=== PATIENT | male | born 1970 | race Caucasian/White ===

== ENCOUNTER 2021-05-04 14:24 | Emergency (ER) | payer OTHER ==
[2021-05-04] MEDS ORDERED: Sodium Chloride 0.9% 1,000 ML IV ONE (14:40)
[2021-05-04 15:04] LABS: CHLORIDE,CL 94 mEq/L (98-106); SODIUM,NA 133 mEq/L (136-145)
--- NOTE | 2021-05-04 15:16 | EDM.PDOC ---
ED HPI GENERAL MEDICAL PROBLEM - General Chief Complaint: General Stated Complaint: fall Time Seen by Provider: 05/04/21 14:55 Source of Information: Reports: Patient History Limitations: Reports: No Limitations - History of Present Illness INITIAL COMMENTS - FREE TEXT/NARRATIVE: Joel is a 51 yo male who presents to the ED via EMS. Joel was at a volleyball game in [place] this afternoon when he had stood up from sitting on the bleachers. He states he got extremely lightheaded and passed out. Unsure if he hit his head. States this has happened to him in the past with last episode being in July. States he was hospitalized in July with a GI bleed and ended up getting 4 units of blood. States he does drink daily and admits to drinking last night until 2 in the morning. States typical week he will drink a case of beer. Denies any hard alcohol use. Prior to syncopal event today states he has been feeling okay. He states his primary is Dr. Triana at [facility] in [place]. States he was told he does have liver failure but hasn't been doctoring for it. - Related Data Allergies Allergy/AdvReac Type Severity Reaction Status Date / Time prednisone Allergy Cannot Verified 05/04/21 14:36 Remember Home Meds: Home Meds Omeprazole Magnesium [Prilosec Otc] 20 mg PO BID 05/04/21 [History] Past Medical History HEENT History: Reports: Allergic Rhinitis Cardiovascular History: Reports: Hypertension Gastrointestinal History: Reports: GERD, GI Bleed Psychiatric History: Reports: Anxiety, Depression - Infectious Disease History Infectious Disease History: Reports: Chicken Pox - Past Surgical History HEENT Surgical History: Reports: Myringotomy w Tube(s), Naso-Sinus Surgery, Tonsillectomy, Other (See Below) Other HEENT Surgeries/Procedures: wisdom teeth extraction GI Surgical History: Reports: Cholecystectomy Social & Family History - Tobacco Use Tobacco Use Status *Q: Current Every Day Tobacco User Years of Tobacco use: 35 Packs/Tins Daily: 1 - Alcohol Use Days Per Week of Alcohol Use: 7 Number of Drinks Per Day: 6 Total Drinks Per Week: 42 Date of Last Drink: 05/04/21 Time of Last Drink: 02:30 Alcohol Use in Last Twelve Months: Yes Alcohol Use Frequency: Daily - Recreational Drug Use Recreational Drug Use: No Other Recreational Drug Type: medicinal marijuana ED ROS GENERAL - Review of Systems Review Of Systems: See Below Constitutional: Reports: Chills. Denies: Fever HEENT: Reports: Sinus Problem (congestion, cold symptoms for 2 weeks) Respiratory: Denies: Shortness of Breath, Wheezing, Cough, Hemoptysis Cardiovascular: Reports: Syncope. Denies: Chest Pain, Lightheadedness, Palpitations GI/Abdominal: Reports: Constipation. Denies: Abdominal Pain, Bloody Stool, Diarrhea, Hematemesis, Hematochezia, Nausea, Vomiting : Reports: No Symptoms Musculoskeletal: Reports: No Symptoms Skin: Reports: No Symptoms Neurological: Reports: Syncope. Denies: Dizziness, Headache, Numbness, Seizure, Tingling, Trouble Speaking Psychiatric: Reports: Anxiety Hematologic/Lymphatic: Reports: No Symptoms Immunologic: Reports: No Symptoms ED EXAM, GENERAL - Physical Exam Exam: See Below Exam Limited By: No Limitations General Appearance: Alert, No Apparent Distress Eye Exam: Bilateral Eye: Normal Inspection, PERRL Ears: Normal External Exam, Normal Canal, Hearing Grossly Normal, Normal TMs Nose: Normal Mucosa. No: Normal Inspection (has abrasion to bridge of nose from prior fall this last week when he tripped over an extension cord) Throat/Mouth: Normal Inspection, Normal Lips, Normal Gums, Normal Oropharynx, Normal Voice, No Airway Compromise, Other (discolored teeth) Head: Other (small hematoma with superficial abrasion to right top of scalp. Chronic appearing redness of the face secondary to telangiectasia noted. ) Respiratory/Chest: No Respiratory Distress, Lungs Clear, Normal Breath Sounds, No Accessory Muscle Use Cardiovascular: Regular Rate, Rhythm, No Edema, No Murmur GI/Abdominal: Normal Bowel Sounds, Soft, Non-Tender, No Organomegaly, No Distention, No Abnormal Bruit, No Mass Extremities: Normal Inspection, Normal Range of Motion, No Pedal Edema Neurological: Alert, Oriented, CN II-XII Intact, Normal Cognition, No Motor/Sensory Deficits Psychiatric: Normal Affect, Normal Mood Skin Exam: Warm, Dry, Intact, Normal Color, No Rash Course - Vital Signs Last Recorded V/S: Last Vital Signs Temp 97.9 F 05/04/21 14:30 Pulse 70 05/04/21 14:30 Resp 16 05/04/21 14:30 BP 133/80 05/04/21 14:30 Pulse Ox 99 05/04/21 14:30 - Orders/Labs/Meds Orders: Active Orders 24 hr Category Date Time Status Head wo Cont [CT] Stat Exams 05/04/21 14:58 Taken Labs: Laboratory Tests 05/04/21 05/04/21 05/04/21 Range/Units 14:37 14:37 14:37 WBC 2.9 L (4.0-11.0) 10^3/uL RBC 3.16 L (4.50-6.00) x10^6/uL Hgb 10.6 L (14.0-18.0) g/dL Hct 30.3 L (42.0-52.0) % MCV 95.9 (83.0-97.0) fL MCH 33.5 H (27.0-32.0) pg MCHC 35.0 (32.0-36.0) g/dL RDW Coeff of Chris 12.6 (11.0-15.0) % Plt Count 38 L* (150-400) 10^3/uL Immature Gran % (Auto) 0.3 (0.0-4.9) % Neut % (Auto) 54.1 (41-71) % Lymph % (Auto) 32.5 (24-44) % Mcmullen % (Auto) 11.4 H (0-10) % Eos % (Auto) 0.7 (0-6) % Baso % (Auto) 1.0 (0-1) % Neut # (Auto) 1.56 L (1.80-8.00) x10^3/uL Lymph # (Auto) 0.94 (0.60-5.00) 10^3/uL Mcmullen # (Auto) 0.33 (0.00-1.50) 10^3/uL Eos # (Auto) 0.02 (0.00-1.50) 10^3/uL Baso # (Auto) 0.03 (0.00-0.50) 10^3/uL Immature Gran # (Auto) 0.01 (0.00-0.49) 10^3/uL Sodium 133 L (136-145) mEq/L Potassium 3.9 (3.5-5.0) mEq/L Chloride 94 L (98-106) mEq/L Carbon Dioxide 24 (21-32) mmol/L BUN 6 L (7-18) mg/dL Creatinine 1.2 (0.7-1.3) mg/dL Est Cr Clr Drug Dosing 69.30 mL/min Estimated GFR (MDRD) > 60 (>=60) mL/min Glucose 148 H (75-99) mg/dL Calcium 8.9 (8.4-10.1) mg/dL Total Bilirubin 1.0 (0.0-1.0) mg/dL AST 106 H (15-37) U/L ALT 67 (12-78) U/L Alkaline Phosphatase 89 (46-116) U/L Creatine Kinase 76 (35-232) U/L Troponin I High Sens 6.0 (<=76) pg/mL Total Protein 8.1 (6.4-8.2) g/dL Albumin 3.6 (3.4-5.0) g/dL Amylase 229 H (25-115) U/L Lipase 713 H (73-393) U/L Urine Color Yellow (YELLOW) Urine Appearance Clear (CLEAR) Urine pH 6.0 (4.5-8.0) Ur Specific [place] <= 1.005 (1.003-1.020) Urine Protein Negative (NEGATIVE) mg/dL Urine Glucose (UA) Negative (NEGATIVE) mg/dL Urine Ketones Negative (NEGATIVE) mg/dL Urine Occult Blood Trace-intact H (NEGATIVE) Urine Nitrite Negative (NEGATIVE) Urine Bilirubin Negative (NEGATIVE) Urine Urobilinogen 0.2 (0.2-1.0) EU/dL Ur Leukocyte Esterase Negative (NEGATIVE) Urine RBC Not seen (0-5) /HPF Urine WBC Not seen (0-5) /HPF SARS CoV-2 RNA Rapid ALEX (NEGATIVE) 05/04/21 Range/Units 14:58 WBC (4.0-11.0) 10^3/uL RBC (4.50-6.00) x10^6/uL Hgb (14.0-18.0) g/dL Hct (42.0-52.0) % MCV (83.0-97.0) fL MCH (27.0-32.0) pg MCHC (32.0-36.0) g/dL RDW Coeff of Chris (11.0-15.0) % Plt Count (150-400) 10^3/uL Immature Gran % (Auto) (0.0-4.9) % Neut % (Auto) (41-71) % Lymph % (Auto) (24-44) % Mcmullen % (Auto) (0-10) % Eos % (Auto) (0-6) % Baso % (Auto) (0-1) % Neut # (Auto) (1.80-8.00) x10^3/uL Lymph # (Auto) (0.60-5.00) 10^3/uL Mcmullen # (Auto) (0.00-1.50) 10^3/uL Eos # (Auto) (0.00-1.50) 10^3/uL Baso # (Auto) (0.00-0.50) 10^3/uL Immature Gran # (Auto) (0.00-0.49) 10^3/uL Sodium (136-145) mEq/L Potassium (3.5-5.0) mEq/L Chloride (98-106) mEq/L Carbon Dioxide (21-32) mmol/L BUN (7-18) mg/dL Creatinine (0.7-1.3) mg/dL Est Cr Clr Drug Dosing mL/min Estimated GFR (MDRD) (>=60) mL/min Glucose (75-99) mg/dL Calcium (8.4-10.1) mg/dL Total Bilirubin (0.0-1.0) mg/dL AST (15-37) U/L ALT (12-78) U/L Alkaline Phosphatase (46-116) U/L Creatine Kinase (35-232) U/L Troponin I High Sens (<=76) pg/mL Total Protein (6.4-8.2) g/dL Albumin (3.4-5.0) g/dL Amylase (25-115) U/L Lipase (73-393) U/L Urine Color (YELLOW) Urine Appearance (CLEAR) Urine pH (4.5-8.0) Ur Specific [place] (1.003-1.020) Urine Protein (NEGATIVE) mg/dL Urine Glucose (UA) (NEGATIVE) mg/dL Urine Ketones (NEGATIVE) mg/dL Urine Occult Blood (NEGATIVE) Urine Nitrite (NEGATIVE) Urine Bilirubin (NEGATIVE) Urine Urobilinogen (0.2-1.0) EU/dL Ur Leukocyte Esterase (NEGATIVE) Urine RBC (0-5) /HPF Urine WBC (0-5) /HPF SARS CoV-2 RNA Rapid ALEX Negative (NEGATIVE) Meds: Medications Discontinued Medications Generic Name Dose Route Start Last Admin Trade Name Isaac PRN Reason Stop Dose Admin Sodium Chloride 1,000 mls @ 999 mls/hr 05/04/21 14:40 05/04/21 14:40 Normal Saline IV 05/04/21 15:40 999 mls/hr .BOLUS ONE Administration Multivitamins/Minerals 10 ml/ 1,015.2 mls @ 250 mls/hr 05/04/21 16:00 05/04/21 16:33 Folic Acid 1 mg/ Thiamine HCl IV 05/04/21 20:03 250 mls/hr 100 mg/ Magnesium Sulfate 2 gm ONETIME ONE Administration / Sodium Chloride - Radiology Interpretation Free Text/Narrative:: Dr. Rowe, radiologist at [facility], consulted with no acute intracranial findings. CT Results Date: 05/04/21 CT Results Time: 15:55 Departure - Departure Time of Disposition: 20:15 Disposition: Against Medical Advice 07 Clinical Impression: Pancytopenia Syncope Qualifiers: Syncope type: unspecified Qualified Code(s): R55 - Syncope and collapse Pancreatitis, alcoholic, acute Qualifiers: Acute pancreatitis complication: unspecified Qualified Code(s): K85.20 - Alcohol induced acute pancreatitis without necrosis or infection - Discharge Information Instructions: Acute Pancreatitis, [id number], Syncope, [id number], Pancytopenia Referrals: Toi Triana MD [Primary Care Provider] - Forms: ED Department Discharge Additional Instructions: Patient has pancreatitis with pancytopenia. Strongly encourage hospital admission for observation to receive IV fluids and remain NPO until morning and repeat laboratory work. Which patient is declining and willing to sign out AMA. Strongly advise to refrain from alcohol use. Patient needs further evaluation and follow up with primary provider. CT head negative today. If any fevers, shortness of breath, abdominal pain, bleeding, etc.. further evaluation is needed. Sepsis Event Note (ED) - Evaluation Sepsis Screening Result: No Definite Risk - Focused Exam Vital Signs: Vital Signs Temp Pulse Resp BP Pulse Ox 05/04/21 14:30 97.9 F 70 16 133/80 99 - Problem List & Annotations (1) Syncope SNOMED Code(s): 735025828 Code(s): R55 - SYNCOPE AND COLLAPSE Status: Acute Current Visit: No Qualifiers: Syncope type: unspecified Qualified Code(s): R55 - Syncope and collapse (2) Pancytopenia SNOMED Code(s): 199586021 Code(s): D61.818 - OTHER PANCYTOPENIA Status: Acute Current Visit: No (3) Pancreatitis, alcoholic, acute SNOMED Code(s): 021342414 Code(s): K85.20 - ALCOHOL INDUCED ACUTE PANCREATITIS WITHOUT NECROSIS OR INFCT Status: Acute Current Visit: Yes Qualifiers: Acute pancreatitis complication: unspecified Qualified Code(s): K85.20 - Alcohol induced acute pancreatitis without necrosis or infection - My Orders Last 24 Hours: My Active Orders 05/04/21 14:58 Head wo Cont [CT] Stat - Assessment/Plan Last 24 Hours: My Active Orders 05/04/21 14:58 Head wo Cont [CT] Stat Plan: Initially, I did speak with his via phone about initial laboratory findings. I discussed concerns of pancytopenia with Joel and his . Advising further work up and hematology consultation. I encouraged Joel he needs to see his primary for further evaluation. He assured me he would follow up on Thursday. We proceeded with getting lipase and amylase levels d/t history of alcoholism and pancytopenia, which both were elevated to 2x normal limits. I encouraged Joel to go into the hospital under observation for IV fluids and to remain NPO until tomorrow morning. Patient declined admission today. I did discuss into detail with Joel concerns and serious side effects to pancreatitis to include the possibility of . Joel did agree to receive 1 Liter of NS piggy backed with a banana bag. However, is planning to leave AMA thereafter. Patient has been transferred to outpatient room for IV fluids. Hopefully will reconsider observation status.
[2021-05-04] MEDS ORDERED: MVI, Adult with Vitamin K 10 ML, Folic Acid 1 MG, Thiamine 100 MG, Magnesium Sulfate 2 ... IV ONE ×5 (16:00)
== END 2021-05-04 20:40 | disposition left against medical advice (07) ==
LOC: CC.ED 14:24
DX: R55 Syncope and collapse (principal); S00.31XA Abrasion of nose, initial encounter; K85.20 Alcohol induced acute pancreatitis without necrosis or infection; I10 Essential (primary) hypertension; K21.9 Gastro-esophageal reflux disease without esophagitis; D61.818 Other pancytopenia; Z72.0 Tobacco use; Z88.8 Allergy status to other drugs, medicaments and biological substances; Z79.899 Other long term (current) drug therapy; Z20.822 Contact with and (suspected) exposure to COVID-19; W01.0XXA Fall on same level from slipping, tripping and stumbling without subsequent striking against object, initial encounter
CPT/HCPCS: 36415; 70450; 80053; 81001; 82150; 82550; 83690; 84484; 85025; 93005; 96365; 96366; 99285-25; J3411; J3475; J3490; J7030; U0002